=== PATIENT | female | born 1995 | race Caucasian/White ===

== ENCOUNTER 2017-11-29 17:09 | Emergency (ER) | payer OTHER, MEDICAID ==
[~2017-11-29] VITALS: Ht 162.6 cm; Wt 72.6 kg
[~2017-11-29 17:09] MED LIST: HYDROCODON-ACE1 EAC8 PO; NOHOMEMEDICATIONS; SCOT-TUSSI10 MG/5 ML PO
[2017-11-29] MEDS ORDERED: CLEOCIN HCL150 MG PO (18:13)
[2017-11-29 18:40] VITALS: BP 120/67
== END 2017-11-29 18:41 | disposition home or self-care (01) ==
LOC: M.ERS 17:09
DX: N76.4 Abscess of vulva (principal); Z88.0 Allergy status to penicillin

== ENCOUNTER 2018-02-03 12:18 | Emergency (ER) | payer OTHER, MEDICAID ==
[~2018-02-03] VITALS: Ht 162.6 cm; Wt 68.0 kg
[~2018-02-03 12:18] MED LIST changes: +CLEOCIN HCL150 MG PO
[2018-02-03] MEDS ORDERED: BACTRIM DS TAB1 EACH PO (13:45)
[2018-02-03] MEDS ORDERED: ACETAMINOPHEN-1 EAC1 PO (13:45)
[2018-02-03] MEDS ORDERED: KEFLEX500 M1 PO (13:45)
[2018-02-03 14:04] VITALS: BP 148/89
== END 2018-02-03 14:04 | disposition home or self-care (01) ==
LOC: M.ERS 12:18
DX: L02.215 Cutaneous abscess of perineum (principal); F17.210 Nicotine dependence, cigarettes, uncomplicated; Z88.0 Allergy status to penicillin

== ENCOUNTER 2018-02-12 12:38 | Emergency (ER) | payer OTHER, MEDICAID ==
[~2018-02-12] VITALS: Ht 162.6 cm; Wt 63.5 kg
[~2018-02-12 12:38] MED LIST changes: +ACETAMINOPHEN-1 EAC1 PO; +BACTRIM DS TAB1 EACH PO; +KEFLEX500 M1 PO
[2018-02-12] MEDS ORDERED: CLEOCIN HCL150 MG PO (15:29)
[2018-02-12] MEDS ORDERED: ACETAMINOPHEN-1 EAC1 PO (15:34)
[2018-02-12 15:40] VITALS: BP 129/79
== END 2018-02-12 15:40 | disposition home or self-care (01) ==
LOC: M.ERS 12:38
DX: N76.4 Abscess of vulva (principal); F17.210 Nicotine dependence, cigarettes, uncomplicated; Z88.0 Allergy status to penicillin; Z98.890 Other specified postprocedural states

== ENCOUNTER 2018-07-16 16:58 | Emergency (ER) | payer OTHER, MEDICAID ==
[~2018-07-16] VITALS: Ht 162.6 cm; Wt 61.2 kg
[2018-07-16 17:23] LABS: URINE BILIRUBIN 1+ (Negative); URINE BLOOD NEGATIVE (Negative); URINE CLARITY CLEAR; URINE COLOR YELLOW; URINE GLUCOSE-RANDOM NEGATIVE (Negative); URINE KETONES NEGATIVE (Negative); URINE LEUKOCYTES-REFLEX NEGATIVE (Negative); URINE NITRITE-REFLEX NEGATIVE (Negative); URINE PROTEIN NEGATIVE (Negative); URINE SPECIFIC GRAVITY >= 1.030 (1.005-1.030); URINE UROBILINOGEN 0.2 E.U./dl (0.2-1.0)
[2018-07-16 17:26] LABS: ICTOTEST (BILI CONFIRMATORY) Negative (Negative)
[2018-07-16] MEDS ORDERED: DOXYCYCLINE 10100 MG PO (17:48)
[2018-07-16 18:11] VITALS: BP 119/81
[2018-07-19 21:07] LABS: HSV 1 DNA Negative (Negative); HSV 2 DNA Negative (Negative)
== END 2018-07-16 18:11 | disposition home or self-care (01) ==
LOC: M.ERS 16:58
PROVIDERS: Nurse Practitioner Family
DX: N90.89 Other specified noninflammatory disorders of vulva and perineum (principal); F17.210 Nicotine dependence, cigarettes, uncomplicated; Z88.0 Allergy status to penicillin; Z98.890 Other specified postprocedural states

== ENCOUNTER 2019-01-08 15:34 | Emergency (ER) | payer OTHER, MEDICAID ==
[~2019-01-08] VITALS: Ht 162.6 cm; Wt 61.2 kg
[~2019-01-08 15:34] MED LIST changes: +DOXYCYCLINE 10100 MG PO
[2019-01-08] MEDS ORDERED: BACTRIM DS TAB1 EACH PO (17:14)
[2019-01-08 18:27] VITALS: BP 122/97
== END 2019-01-08 18:29 | disposition home or self-care (01) ==
LOC: M.ERS 15:34
DX: N76.0 Acute vaginitis (principal); F17.210 Nicotine dependence, cigarettes, uncomplicated; Z98.890 Other specified postprocedural states; Z88.0 Allergy status to penicillin